=== PATIENT | female | born 1960 | race Hispanic/Latino ===

== ENCOUNTER 2017-05-21 14:04 | Emergency (ER) | payer BC, OTHER ==
[2017-05-21 14:16] VITALS: TEMP 97; O2SAT 97
--- NOTE | 2017-05-21 15:09 | ED PDOC ---
HPI: General Adult Time Seen by Provider: 05/21/17 14:46 Chief Complaint (Nursing): Abnormal Skin Integrity Chief Complaint (Provider): Echymosis on abd wall History Per: Patient History/Exam Limitations: no limitations Onset/Duration Of Symptoms: Days (today) Additional Complaint(s): Pt. with cough, congestion, runny nose for 1 week. Coughed a lot. For past few days has right lower abd pain. Today she noted echymosis on periumbilical area. Hurts slightly. Saw prompt MD and sent to the Ed for it. No nausea, vomit diarrhea. No weakness or bleeding from anywhere. On no blood thinners. No injury. Past Medical History Reviewed: Nursing Documentation, Vital Signs Vital Signs: Last Vital Signs Temp 97.0 F L 05/21/17 14:13 Pulse 92 H 05/21/17 17:58 Resp 18 05/21/17 17:58 BP 110/80 05/21/17 17:58 Pulse Ox 97 05/21/17 17:58 - Medical History PMH: No Chronic Diseases - Surgical History Surgical History: No Surg Hx - Family History Family History: States: Unknown Family Hx - Social History Alcohol: None Drugs: Denies - Home Medications Home Medications: Ambulatory Orders Medication Instructions Recorded Azithromycin [Zithromax] 250 mg PO DAILY #6 dose 05/21/17 - Allergies Allergies/Adverse Reactions: Allergies Allergy/AdvReac Type Severity Reaction Status Date / Time No Known Allergies Allergy Verified 05/21/17 14:16 Review of Systems ROS Statement: Except As Marked, All Systems Reviewed And Found Negative ENT: Positive for: Nose Discharge, Nose Congestion Respiratory: Positive for: Cough Gastrointestinal: Positive for: Abdominal Pain Skin: Positive for: Rash Physical Exam - Reviewed Nursing Documentation Reviewed: Yes Vital Signs Reviewed: Yes - Physical Exam Appears: Positive for: Non-toxic, No Acute Distress Head Exam: Positive for: ATRAUMATIC, NORMAL INSPECTION, NORMOCEPHALIC Skin: Positive for: Warm Eye Exam: Positive for: EOMI, Normal appearance, PERRL ENT: Positive for: Normal ENT Inspection Neck: Positive for: Normal, Painless ROM Cardiovascular/Chest: Positive for: Regular Rate, Rhythm Respiratory: Positive for: CNT, Normal Breath Sounds Gastrointestinal/Abdominal: Positive for: Bowel Sounds, Soft, Tenderness (RLQ tender mild; periumbilical with lower half with 3cm diameter echymosis area, mild tender; no erythema or induration.) Back: Positive for: Normal Inspection. Negative for: L CVA Tenderness, R CVA Tenderness Extremity: Positive for: Normal ROM. Negative for: Tenderness, Pedal Edema Neurologic/Psych: Positive for: Alert, Oriented - Laboratory Results Result Diagrams: 05/21/17 15:20 05/21/17 15:20 Interpretation Of Abn Labs: 12.5 wbc - ECG O2 Sat by Pulse Oximetry: 97 Pulse Ox Interpretation: Normal - Progress ED Course And Treament: 1640: Stable. AAOx3. Pain free. Tolerated PO. Dr. Thibodeaux took over. Fu with surgery. Disposition - Clinical Impression Clinical Impression: Hematoma, Pneumonia - Patient ED Disposition Is Patient to be Admitted: No Counseled Patient/Family Regarding: Studies Performed, Diagnosis, Need For Followup - Disposition Referrals: [facility] [Outside] Erasmo Currie [Outside] Dinh Coronado MD [Staff Provider] - 05/23/17 () Disposition: Routine/Home Disposition Time: 16:42 Condition: STABLE Additional Instructions: FOLLOW UP WITH YOUR PMD OR NEREIDAPOINT JOSE IN 48 HOURS FOR REEVALUATION FOR YOUR COUGH FOLLOW UP WITH DR CORONADO OR ERASMO GARCIA IN 48 HOURS FOR REEVALUATION FOR YOUR HEMATOMA RETURN TO ER IMMEDIATELY FOR SEVERE PAIN, DIFFICULTY BREATHING, FAINTING OR NEAR FAINTING, OR ANY OTHER WORRISOME SYMPTOMS Prescriptions: Azithromycin [Zithromax] 250 mg PO DAILY #6 dose Instructions: Pneumonia (ED), Hematoma (ED) Forms: [employer] (Irish)
[2017-05-21 15:33] LABS: BASO % 0.3 % (0.0-2.0); EOS # 0.2 K/uL (0.0-0.7); EOS % 1.3 % (0.0-4.0); LYMPH # 1.8 K/uL (1.0-4.3); LYMPH % 14.3 % (20.0-40.0); MEAN CELL VOLUME 88.6 fl (81.0-99.0); MEAN CORPUSCULAR HEMOGLOBIN 29.8 pg (27.0-31.0); MEAN CORPUSCULAR HGB CONC 33.6 g/dL (33.0-37.0); MEAN PLATELET VOLUME 9.7 fl (7.2-11.7); MONO % 8.1 % (0.0-10.0); NEUT # 9.5 K/uL (1.8-7.0); RBC 4.02 Mil/uL (3.80-5.20); RED CELL DISTRIBUTION WIDTH 13.8 % (11.5-14.5); WHITE BLOOD COUNT 12.5 K/uL (4.8-10.8)
[2017-05-21] MEDS: Sodium Chloride 0.9% 1,000 ML IV STA ×2 (15:36→15:55)
[2017-05-21 15:44] LABS: ALB/GLOB RATIO 1.1 (1.0-2.1); ALBUMIN 3.9 g/dL (3.5-5.0); ALT/SGPT 32 U/L (9-52); AST/SGOT 20 U/L (14-36); BLOOD UREA NITROGEN 15 mg/dl (7-17); CALCIUM 9.3 mg/dL (8.4-10.2); GFR AFRICAN-AMERICAN > 60; GFR NON-AFRICAN AMERICAN 57; LIPASE 69 U/L (23-300)
[2017-05-21 16:12] LABS: INR 1.1 (0.9-1.2); PARTIAL THROMBOPLASTIN TIME 36.6 Seconds (25.6-37.1); PROTHROMBIN TIME 12.5 Seconds (9.8-13.1)
[2017-05-21] MEDS ORDERED: Iohexol 300 100 ML IJ ONE (16:16)
[2017-05-21] MEDS ORDERED: Sodium Chloride 0.9% 50 ML IV ONE (16:16)
--- NOTE | 2017-05-21 17:01 | CT ---
PROCEDURE: CT Abdomen and Pelvis with contrast HISTORY: RLQ pain; echymosis periumbilical COMPARISON: None. TECHNIQUE: Contrast dose: 95 mL of Omnipaque 300. Axial and reformatted coronal and sagittal CT images of the abdomen and pelvis were obtained after IV contrast administration. Radiation dose: Total exam DLP = 797.26 mGy-cm. This CT exam was performed using one or more of the following dose reduction techniques: Automated exposure control, adjustment of the mA and/or kV according to patient size, and/or use of iterative reconstruction technique. FINDINGS: LOWER THORAX: Focal opacity noted at the left lower lobe may represent pneumonia. The possibility of neoplasm is less likely. No evidence of pleural effusion. The heart is normal in size. LIVER: UnremarkableMild hepatomegaly is noted. There is mild intrahepatic biliary ductal dilatation. There are few scattered sub centimeter low-attenuation lesions in the liver not fully characterized in this exam and may represent benign small cysts. . No gross lesion or ductal dilatation. GALLBLADDER AND BILE DUCTS: The gallbladder is mildly distended. No evidence of acute cholecystitis. The common bile duct is slightly prominent in size. PANCREAS: The main pancreatic duct is mildly dilated. There is 5 millimeter low-attenuation lesion at the distal pancreatic body image 44 series 3. The pancreatic tail is not visualized in this study. SPLEEN: Unremarkable. ADRENALS: Unremarkable. No mass. KIDNEYS AND URETERS: Unremarkable. No hydronephrosis. No solid mass. VASCULATURE: Unremarkable. No aortic aneurysm. BOWEL: Scattered colonic diverticulosis are noted without CT evidence of diverticulitis. Mild constipation is seen. No evidence of small bowel obstruction. There is no evidence of appendicitis. APPENDIX: There is no evidence of appendicitis. PERITONEUM: Unremarkable. No free fluid. No free air. LYMPH NODES: Unremarkable. No enlarged lymph nodes. BLADDER: Unremarkable. REPRODUCTIVE: The uterus is heterogeneous mildly enlarged for the patient's age. No CT evidence of suspicious mass in the adnexa. There is low-attenuation cyst at the right adnexa measures 1.7 Centimeter. BONES: No acute fracture. OTHER FINDINGS: There is focal thickening in the right rectus abdominis muscles with possible heterogeneous fluid collection or hematoma which measures approximately 3.5 centimeter in the largest transverse diameter and 2.4 centimeter in the AP diameter and 6 centimeter in the longitudinal diameter best seen on image 127 series 3. IMPRESSION: Oval-shaped thickening in the right rectus abdominus muscle with possible hematoma or complex collection measures 6 x 2.4 x 3.4 centimeter. Please correlate clinically for recent trauma. No evidence of cholecystitis, pancreatitis or appendicitis. Mildly dilated intrahepatic and extrahepatic biliary ductal dilatation. If clinically warranted further assessment by non emergent MRCP may be obtained. 5 millimeter low-attenuation lesion at the pancreatic body. Low-attenuation few scattered small lesions in the liver. Colonic diverticulosis without evidence of diverticulitis. Heterogeneous mildly enlarged uterus. 1.7 centimeters cyst at the right adnexa. Two adjacent focal airspace opacities at the left lower lobe may represent a pneumonia. The possibility of atelectasis or neoplasm is less likely.
--- NOTE | 2017-05-21 17:13 | ED PDOC ---
- Laboratory Results Result Diagrams: 05/21/17 15:20 05/21/17 15:20 - ECG O2 Sat by Pulse Oximetry: 97 (RA) Pulse Ox Interpretation: Normal Medical Decision Making Medical Decision Making: Time: 17:00 Patient endorsed to me by Dr. Boni Wilcox at this time. Pending ER work-up including CT, reassessment, and final disposition. Accession No. : [id number] Patient Name / ID : SHRUTHI CLARK / [id number] Exam Date : 05/21/2017 16:16:05 ( Approved ) Study Comment : Sex / Age : F / 56Y Creator : Anne Mtahew MD Dictator : Anne Mathew MD Service Advisor : Wedding Designer : Anne Mathew MD Approver2 : Report Date : 05/21/2017 16:59:43 My Comment : PROCEDURE: CT Abdomen and Pelvis with contrast HISTORY: RLQ pain; echymosis periumbilical COMPARISON: None. TECHNIQUE: Contrast dose: 95 mL of Omnipaque 300. Axial and reformatted coronal and sagittal CT images of the abdomen and pelvis were obtained after IV contrast administration. Radiation dose: Total exam DLP = 797.26 mGy-cm. This CT exam was performed using one or more of the following dose reduction techniques: Automated exposure control, adjustment of the mA and/or kV according to patient size, and/or use of iterative reconstruction technique. FINDINGS: LOWER THORAX: Focal opacity noted at the left lower lobe may represent pneumonia. The possibility of neoplasm is less likely. No evidence of pleural effusion. The heart is normal in size. LIVER: UnremarkableMild hepatomegaly is noted. There is mild intrahepatic biliary ductal dilatation. There are few scattered sub centimeter low-attenuation lesions in the liver not fully characterized in this exam and may represent benign small cysts. . No gross lesion or ductal dilatation. GALLBLADDER AND BILE DUCTS: The gallbladder is mildly distended. No evidence of acute cholecystitis. The common bile duct is slightly prominent in size. PANCREAS: The main pancreatic duct is mildly dilated. There is 5 millimeter low- attenuation lesion at the distal pancreatic body image 44 series 3. The pancreatic tail is not visualized in this study. SPLEEN: Unremarkable. ADRENALS: Unremarkable. No mass. KIDNEYS AND URETERS: Unremarkable. No hydronephrosis. No solid mass. VASCULATURE: Unremarkable. No aortic aneurysm. BOWEL: Scattered colonic diverticulosis are noted without CT evidence of diverticulitis. Mild constipation is seen. No evidence of small bowel obstruction. There is no evidence of appendicitis. APPENDIX: There is no evidence of appendicitis. PERITONEUM: Unremarkable. No free fluid. No free air. LYMPH NODES: Unremarkable. No enlarged lymph nodes. BLADDER: Unremarkable. REPRODUCTIVE: The uterus is heterogeneous mildly enlarged for the patient's age. No CT evidence of suspicious mass in the adnexa. There is low-attenuation cyst at the right adnexa measures 1.7 Centimeter. BONES: No acute fracture. OTHER FINDINGS: There is focal thickening in the right rectus abdominis muscles with possible heterogeneous fluid collection or hematoma which measures approximately 3.5 centimeter in the largest transverse diameter and 2.4 centimeter in the AP diameter and 6 centimeter in the longitudinal diameter best seen on image 127 series 3. IMPRESSION: Oval-shaped thickening in the right rectus abdominus muscle with possible hematoma or complex collection measures 6 x 2.4 x 3.4 centimeter. Please correlate clinically for recent trauma. No evidence of cholecystitis, pancreatitis or appendicitis. Mildly dilated intrahepatic and extrahepatic biliary ductal dilatation. If clinically warranted further assessment by non emergent MRCP may be obtained. 5 millimeter low-attenuation lesion at the pancreatic body. Low-attenuation few scattered small lesions in the liver. Colonic diverticulosis without evidence of diverticulitis. Heterogeneous mildly enlarged uterus. 1.7 centimeters cyst at the right adnexa. Two adjacent focal airspace opacities at the left lower lobe may represent a pneumonia. The possibility of atelectasis or neoplasm is less likely. Time: 17:37 Discussed patient's findings with Dr. Melgar, surgery on-call, who recommends findings be followed up as outpatient, with conservative management with ice and rest. Discussed findings and plan with patient. There is agreement to discharge plan. Scribe Attestation: Documented by Meryl Vela, acting as a scribe for Yuni Thibodeaux MD Provider Scribe Attestation: All medical record entries made by the Scribe were at my direction and personally dictated by me. I have reviewed the chart and agree that the record accurately reflects my personal performance of the history, physical exam, medical decision making, and the department course for this patient. I have also personally directed, reviewed, and agree with the discharge instructions and disposition. Disposition Counseled Patient/Family Regarding: Studies Performed, Diagnosis, Need For Followup, Rx Given - Clinical Impression Clinical Impression: Hematoma, Pneumonia - POA Present On Arrival: None - Disposition Referrals: [facility] [Outside] Erasmo Currie [Outside] Dinh Melgar MD [Staff Provider] - 05/23/17 () Disposition: Routine/Home Disposition Time: 17:39 Condition: STABLE Additional Instructions: FOLLOW UP WITH YOUR PMD OR NEREIDAPOINT CONNECT IN 48 HOURS FOR REEVALUATION FOR YOUR COUGH FOLLOW UP WITH DR MELGAR OR ERASMO GARCIA IN 48 HOURS FOR REEVALUATION FOR YOUR HEMATOMA RETURN TO ER IMMEDIATELY FOR SEVERE PAIN, DIFFICULTY BREATHING, FAINTING OR NEAR FAINTING, OR ANY OTHER WORRISOME SYMPTOMS Prescriptions: Azithromycin [Zithromax] 250 mg PO DAILY #6 dose Instructions: Pneumonia (ED), Hematoma (ED) Forms: [employer] ([place])
[2017-05-21 17:59] VITALS: BP 110/80; PULSE 92; RESP 18
== END 2017-05-21 17:50 | disposition home or self-care (01) ==
LOC: H.ER 14:04 → EDBD 14:04 → H.ER 17:50
DX: J18.9 Pneumonia, unspecified organism (principal); T14.8XXA Other injury of unspecified body region, initial encounter
CPT/HCPCS: 74177; 80053; 83690; 85025; 85610; 85730; 99282; J7040; Q9967